=== PATIENT | male | born 1990 ===

== ENCOUNTER 2017-03-09 18:27 | Emergency (ER) | payer SELFPAY ==
--- NOTE | 2017-03-11 13:34 | ER ---
ADMIT: 03/09/2017 RM/LOC: ER [facility] [place] MR#: [id number] [id number] RAMÍREZ GATES [birth year][address] [address] Emergency Room Report SEX: M AGE: 26 : 1990 DATE: 03/09/2017 CHIEF COMPLAINT: "Burning sensation under balls." HISTORY OF PRESENT ILLNESS: A 26-year-old male presents to the ER with complaints of perineal pain and dysuria for the past 4 days. States he began having some pain just below his testicles approximately 4 days ago. States the day after this, he sat on the toilet seat when he stood up, he noticed some blood on the seat. He states he believes his penis is coming into contact with this blood. Since this time, he has had worsening dysuria, burning about his penis and urethral meatus with urination. Denies any discharge from his penis. There is no pain or swelling in his testicles. No flank pain or abdominal pain. He is currently sexually active with one partner. Denies nausea, vomiting, urinary hesitancy, or difficulty starting a stream. PAST MEDICAL HISTORY: No past medical history. PAST SURGICAL HISTORY: No surgeries. MEDICATIONS: None. ALLERGIES: NONE. COURSE IN THE EMERGENCY ROOM: The patient was seen and examined. GENERAL: Afebrile, nontoxic, in no acute distress. ABDOMEN: Soft and nontender. GENITOURINARY: Circumcised male. There is no urethral discharge. No tenderness with testicular palpitation. No epididymal tenderness. There are no signs of erythema or fluctuance in the perineum. NECK: Soft, supple. CHEST: Clear. HEART: Regular. BACK: No CVA tenderness. EXTREMITIES: Nontender. There is no pedal edema. SKIN: Warm and dry. He is otherwise alert and oriented. Urine was collected, shows 3 rbc's, no signs of infection. Wet mount, no trich. Gonorrhea and chlamydia are pending at this time. I did have a discussion with the patient at bedside today with the findings of today's results. Did educate him of possible prostate involvement to thoroughly rule this out. We would need to do a prostate exam, which involved ADMIT: 03/09/2017 RM/LOC: [facility] MR#: [id number] [id number] IONA FOWLER, AUSENICO [birth year][address] [place] [address] Emergency Room Report SEX: M AGE: 26 : 1990 a digital rectal exam. The patient declined at this time. He would like to continue conservative measures and follow up if pain is not improving. CLINICAL IMPRESSION: 1. Dysuria. 2. Perineal pain. DISPOSITION: The patient was discharged home. Increase fluids. Tylenol or Motrin for pain. Return with worsening signs or symptoms. Follow up with primary care as needed. We will call him if the results of the gonorrhea and chlamydia are positive. Discharged home in stable condition. NORAH Gibson / Rosales Sanches MD / modl JOB #: [id number] CC: Jovan Condon MD, Attending Physician Velma Armstrong MD, Family Physician
== END 2017-03-09 19:50 | disposition home or self-care (01) ==
LOC: ER 18:27
DX: R30.0 Dysuria (principal); R10.2 Pelvic and perineal pain